=== PATIENT | female | born 1985 | race Two or more races ===

== ENCOUNTER 2018-12-19 19:27 | Emergency (ER) | payer SELFPAY ==
[~2018-12-19] VITALS: Ht 157.5 cm; Wt 49.9 kg
[2018-12-19 19:47] VITALS: BP 119/73
== END 2018-12-19 22:38 | disposition home or self-care (01) ==
LOC: ER 19:27
DX: R51 Headache (principal); W22.8XXA Striking against or struck by other objects, initial encounter; Y93.89 Activity, other specified; Y99.8 Other external cause status; Y92.89 Other specified places as the place of occurrence of the external cause
CPT/HCPCS: 70450; 81025